=== PATIENT | female | born 1970 | race Caucasian/White ===

== ENCOUNTER → 2016-10-20 | Day surgery (SDC) | payer OTHER ==
[~2016-10-20] VITALS: Ht 170.2 cm; Wt 63.5 kg
[~2016-10-20] MED LIST: 0.9% Sodium Chloride 1,000 ML IV PRN; COL100L PO; HYDR1TAB91 PO; IBUP-1152 PO; LANS30CA PO; RANI150C4 PO; Sodium Chloride LOK Flush 10 mL Syringe IV PRN; fentaNYL-PF 50 mCg/mL 2 mL Inj IVPUSH PRN
[2016-10-20 08:03] VITALS: BP 111/76; PULSE 77; RESP 16; O2SAT 100
[2016-10-20 09:02] VITALS: BP 107/70; PULSE 87; RESP 16; O2SAT 100
[2016-10-20 09:12] VITALS: BP 111/74; PULSE 73; RESP 16; O2SAT 100
[2016-10-20 09:22] VITALS: BP 105/75; PULSE 64; RESP 16; O2SAT 100
--- NOTE | 2016-10-20 10:21 | ENDO ---
[address] [address] ENDOSCOPY PROCEDURE PATIENT: CANDI BRASWELL : 1970 MR#: [id number] ADMIT: 10/20/2016 JOB ID: [id number] DATE OF SERVICE: 10/20/2016 PROCEDURE PERFORMED: Esophagogastroduodenoscopy. INDICATION: GERD and epigastric pain. ASA CLASSIFICATION: The patient's ASA classification is I. MALLAMPATI SCORE: Mallampati score is 1. MEDICATIONS: 1. Versed 7 mg. 2. Fentanyl 125 mcg. INSTRUMENT USED: [id number]. PROCEDURE DETAILS: After informed consent was obtained, the patient was brought into the GI suite, where she was placed on oxygen via nasal cannula and monitored with continuous pulse oximeter, telemetry, and blood pressure monitoring. A time-out was performed. Then, she was placed in the left lateral decubitus position, and medications were administered for sedation. A bite block was placed. A standard EGD scope was inserted through the bite block and advanced under direct visualization to the second portion of the duodenum without difficulty. FINDINGS: 1. Normal appearing duodenal bulb, first and second portions. Multiple random biopsies were obtained. 2. Normal appearing pylorus and antrum. 3. In the gastric body there were multiple polyps ranging in size from 5 mm to 7 mm. Polyp appearance was consistent with fundic gland polyps. The largest polyp was sampled with multiple biopsies. 4. Retroflexed views in the gastric body revealed normal appearing cardia and fundus. 5. Normal appearing GE junction with regular Z-line at 42 cm. 6. Normal appearing esophagus. IMPRESSION: 1. Multiple gastric body polyps, appearance consistent with fundic gland polyps. 2. Otherwise normal exam. RECOMMENDATIONS: 1. Await biopsy results. 2. Follow up in GI clinic. COMPLICATIONS: None. ESTIMATED BLOOD LOSS: Less than 5 mL.
--- NOTE | 2016-10-24 16:55 | PATH ---
SURGICAL PATHOLOGY Attending Physician:Jami Vazquez CASE STATUS: Signed Out PATIENT NAME: CANDI BRASWELL PID: [id number] : 1970 DATE COLLECTED:10/20/2016 21:49 SPECIMEN: 1: Duodenum, Biopsy 2: Gastric, Biopsy 3: Stomach, Polyp, Biopsy CLINICAL HISTORY: 1). DUODENUM BIOPSY 2). GASTRIC BIOPSY, RULE OUT H.PYLORI 3). GASTRIC BODY POLYP, RULE OUT H.PYLORI FINAL DIAGNOSIS: 1. Duodenum, Biopsy: Duodenal mucosa with no diagnostic abnormality. Negative for active inflammation, features of sprue, dysplasia or malignancy. 2. Stomach, Biopsy: Gastric body mucosa with no diagnostic abnormality. Helicobacter organisms not identified. Negative for intestinal metaplasia, dysplasia or malignancy. 3. Gastric Body Polyp, Biopsy: Fundic gland polyp. Helicobacter organisms not identified. Negative for intestinal metaplasia, dysplasia or malignancy. ICD10: R10.13 GROSS DESCRIPTION: Received three formalin-filled containers, each labeled with the patient' s name. 1. Received in formalin, labeled with the patient' s name and "duodenum biopsy", are three fragments of de leon, soft tissue ranging from 0.2 x 0.1 x 0.1 cm to 0.3 x 0.2 x 0.1 cm. The fragments are totally submitted in cassette 1A. 2. Received in formalin, labeled with the patient' s name and "gastric biopsy", are two fragments of de leon, soft tissue ranging from 0.1 x 0.1 x 0.1 cm to 0.5 x 0.2 x 0.1 cm. The fragments are totally submitted in cassette 2A. 3. Received in formalin, labeled with the patient' s name and "gastric body polyp", is one fragment of de leon, soft tissue measuring 0.4 x 0.2 x 0.1 cm The fragment is totally submitted in cassette 3A. [id number]) ICD-9 CODES: CPT CODES: 1: 10750 2: 79086 3: 41874 Electronically Signed Out Main Suárez MD, Ph.D. [facility] Pathology [facility], [place] [address] Technical component performed at [facility], [facility] [address], [place], [address]
== END | disposition home or self-care (01) ==
LOC: END 01:30
PROVIDERS: ATTEND Internal Medicine Gastroenterology
DX: K21.9 Gastro-esophageal reflux disease without esophagitis (principal); K31.7 Polyp of stomach and duodenum
CPT/HCPCS: 43239; G0500; J2250; J3010; J7030